=== PATIENT | male | born 1950 | race Caucasian/White ===

== ENCOUNTER 2019-12-04 18:54 | Emergency (ER) | payer MEDICARE, MEDICAID, SELFPAY ==
--- NOTE | ~2019-12-04 | XR_ITS ---
EXAMINATION: XR chest 2V DATE: 12/04/2019 20:22 INDICATION: COPD. Weakness and shortness of breath. TECHNIQUE: PA and lateral views of the chest were obtained. COMPARISON: None FINDINGS: Lenticular opacity at the posterior and lateral aspects of the right mid and lower lung zones consist ent with small to moderate sized loculated pleural effusion. Right apical scarring with a couple surg ical clips. Lungs are otherwise clear with no pulmonary edema, pneumothorax or left-sided pleural eff usion. The cardiomediastinal silhouette is normal. Moderate thoracic spondylosis with mild anterior w edging of a couple mid thoracic vertebral bodies. IMPRESSION: 1. Unilateral small to moderate-sized loculated right pleural effusion. 2. Scarring and a couple surgical clips at the right apex. Correlate with operative history. Reviewed, dictated and finalized at location A. IMPRESSION: 1. Unilateral small to moderate-sized loculated right pleural effusion. 2. Scarring and a couple surgical clips at the right apex. Correlate with opera tive history.
--- NOTE | ~2019-12-04 | CT_ITS ---
EXAMINATION: CT chest w con DATE: 12/04/2019 21:45 INDICATION: right pleural effusion TECHNIQUE: Computed tomography (CT) of the chest was performed with 100 mL Omnipaque-350 intravenous contrast. Additional 3D reconstructions utilizing coronal maximum intensity projection (MIP) were per formed. Automated exposure control and iterative reconstruction technique were employed. The dose-tom gth product was 177.18 mGy-cm. COMPARISON: None FINDINGS: Loculated moderate-sized right pleural effusion with thickened pleural margins along with scattered s mall calcified plaques along the parietal pleura consistent with chronic exudative effusion. There is round atelectasis in the right lower lobe with volume loss and architectural distortion. No pneumoni a, pulmonary edema, pneumothorax or left-sided pleural effusion. Heart size is normal. Trace pericard ial effusion. Atherosclerotic coronary artery calcifications. Thoracic aorta is normal in caliber wit h no dissection. There is a cluster of mildly prominent subcarinal lymph nodes measuring up to 11 mm in maximal short axis diameter which are likely reactive. No other pathologically enlarged thoracic l ymphadenopathy. There are few surgical clips in the right supraclavicular region. Minimal thyroid tis anmol which could be related to chronic atrophy or change of prior thyroidectomy. Tiny high attenuation gallstones layering along the dependent aspect of the visualized portion of the gallbladder which ap pears normal with no evident wall thickening or pericholecystic inflammatory stranding. Visualized up per abdomen is otherwise unremarkable. Mild to moderate scattered degenerative skeletal changes. IMPRESSION: 1. Unilateral moderate-sized likely chronic loculated right pleural effusion with some peripheral irma cified pleural plaques suggesting an exudative etiology. 2. Adjacent peripheral round atelectasis in the right lower lobe. No other acute cardiopulmonary dise ase. 3. Cluster of mildly prominent subcarinal lymph nodes which are likely reactive. Reviewed, dictated and finalized at location A. IMPRESSION: 1. Unilateral moderate-sized likely chronic loculated right pleural effusion wi th some peripheral calcified pleural plaques suggesting an exudative etiology. 2. Adjacent peripheral round atelectasis in the right lower lobe. No other acut e cardiopulmonary disease. 3. Cluster of mildly prominent subcarinal lymph nodes which are likely reactive .
[2019-12-04 19:10] VITALS: BP 119/76; PULSE 95; RESP 19; TEMP 36.6; O2SAT 98
[2019-12-04 19:20] LABS: Basophils Percent Auto 0.4 % (0.2-1.2); Eosinophils Percent Auto 0.2 % (0-4.4); Hematocrit 30.7 % (42.0-52.0); Hemoglobin 10.2 g/dL (14.0-18.0); Immature Granulocyte Absolute 0.13 K/mm3 (0.00-0.031); Immature Granulocyte Percent A 1.2 % (0-0.5); Lymphocytes Absolute Auto 0.54 K/mm3 (0.9-3.2); Mean Corpuscular HGB Conc 33.2 g/dl (32-36); Mean Corpuscular Hemoglobin 28.8 pg (26-34); Mean Corpuscular Volume 86.7 fl (80-100); Mean Platelet Volume 8.9 fl (7.4-10.4); Monocytes Absolute Auto 0.8 K/mm3 (0.1-0.6); Monocytes Percent Auto 7.2 % (2.6-8.5); Neutrophils Absolute Auto 9.4 K/mm3 (1.3-6.7); Platelet Count Result 414 k/mm3 (150-375); Red Blood Count 3.54 M/mm3 (4.6-6.20); Red Cell Distribution Width 14.8 % (11.5-14.5); White Blood Count 10.9 K/mm3 (4.5-10.0)
[2019-12-04 19:37] LABS: Alanine Aminotransferase 12 U/L (4-50); Albumin Level 3.7 g/dL (3.5-5.1); Alkaline Phosphatase 205 U/L (38-126); Anion Gap 11 mmol/L (8-16); Aspartate Amino Transferase 32 U/L (17-59); Blood Urea Nitrogen 5 mg/dL (9-20); Calcium 8.7 mg/dL (8.4-10.2); Carbon Dioxide 25 mmol/L (22-30); Chloride 93 mmol/L (98-107); Estimated CRCL calculation 96 ml/min; Estimated Glomerular Filt Rate > 60; Glucose 99 mg/dL (75-110); Potassium 4.2 mmol/L (3.4-5.0); Sodium 129 mmol/L (137-145)
--- NOTE | 2019-12-04 20:16 | PC.NURSE ---
UNABLE TO DRAW PT, XRAY HAS PT
[2019-12-04 20:22] LABS: Basophils Percent Auto 0.4 % (0.2-1.2); Eosinophils Percent Auto 0.2 % (0-4.4); Hematocrit 30.7 % (42.0-52.0); Hemoglobin 10.2 g/dL (14.0-18.0); Immature Granulocyte Absolute 0.16 K/mm3 (0.00-0.031); Immature Granulocyte Percent A 1.7 % (0-0.5); Lymphocytes Percent Auto 5.2 % (18.3-44.2); Mean Corpuscular HGB Conc 33.2 g/dl (32-36); Mean Corpuscular Hemoglobin 28.8 pg (26-34); Mean Corpuscular Volume 86.7 fl (80-100); Mean Platelet Volume 9.2 fl (7.4-10.4); Monocytes Absolute Auto 0.8 K/mm3 (0.1-0.6); Monocytes Percent Auto 7.9 % (2.6-8.5); Neutrophils Absolute Auto 8.1 K/mm3 (1.3-6.7); Neutrophils Percent Auto 84.6 % (45.5-73.1); Platelet Count Result 410 k/mm3 (150-375); Red Blood Count 3.54 M/mm3 (4.6-6.20); Red Cell Distribution Width 14.8 % (11.5-14.5); White Blood Count 9.6 K/mm3 (4.5-10.0)
--- NOTE | 2019-12-04 20:30 | PC.NURSE ---
Called lab to add on cbcd
[2019-12-04 20:38] LABS: Alanine Aminotransferase 13 U/L (4-50); Albumin Level 3.6 g/dL (3.5-5.1); Alkaline Phosphatase 211 U/L (38-126); Anion Gap 10 mmol/L (8-16); Aspartate Amino Transferase 33 U/L (17-59); Bilirubin,Total 1.2 mg/dL (0.2-1.3); Blood Urea Nitrogen 5 mg/dL (9-20); Calcium 8.6 mg/dL (8.4-10.2); Carbon Dioxide 25 mmol/L (22-30); Chloride 92 mmol/L (98-107); Estimated CRCL calculation 96 ml/min; Estimated Glomerular Filt Rate > 60; Glucose 98 mg/dL (75-110); Potassium 3.6 mmol/L (3.4-5.0); Sodium 127 mmol/L (137-145)
[2019-12-04 20:39] LABS: Lactic Acid 1.5 mmol/L (0.7-2.1)
--- NOTE | 2019-12-04 21:11 | ED.WEAKNESS ---
HPI - Weakness General Chief complaint: Weakness Stated complaint: possible dehydration Time Seen by Provider: 12/04/19 20:49 Source: patient and family Mode of arrival: ambulatory Limitations: no limitations History of Present Illness HPI Narrative: This patient is a 69 year old male with history of COPD, home oxygen, throat CA who presents with family concerned about weakness and pneumonia. His daughter states patient has been lethargic for a 1 month. She reports he is sleeping alot and he gets fatigued easily walking around house. Patient has also had a productive cough. He developed right flank pain 1 week ago. This pain is worse with breathing. He has a poor appetite but he denies nausea, vomiting. He also denies fever. He is using his home oxygen more frequently but he does not know his oxygen saturation He has been cancer free for 6 years. MD Complaint: generalized weakness Related Data Home Medications Medication Instructions Recorded Confirmed Prevagen 1 tab-cap PO DAILY 12/04/19 amlodipine 10 mg PO DAILY 12/04/19 aspirin [Aspir-81] 81 mg PO DAILY 12/04/19 atorvastatin 80 mg PO DAILY 12/04/19 finasteride 5 mg PO DAILY 12/04/19 levothyroxine 100 mcg PO DAILY 12/04/19 lisinopril 20 mg PO DAILY 12/04/19 omeprazole 40 mg PO DAILY 12/04/19 Allergies Allergy/AdvReac Type Severity Reaction Status Date / Time No Known Allergies Allergy Verified 12/04/19 20:45 Review of Systems Review of Systems: All systems reviewed & are unremarkable except as noted in HPI and below Constitutional: Constitutional: Reports chills, Reports fatigue and Denies fever(s) Cardiovascular: Cardiovascular: Reports chest pain and Denies radiating jaw, neck or arm pain Respiratory: Respiratory: Reports cough and Reports dyspnea Gastrointestinal: Gastrointestinal: Denies abdominal pain, Denies nausea and Denies vomiting [facility] Past Medical History Medical History (Updated 12/05/19 @ 01:50 by Terrie Jeronimo MD) COPD (chronic obstructive pulmonary disease) Pneumonia Throat cancer Social History Social History (Updated 12/05/19 @ 01:46 by Terrie Jeronimo MD) Smoking status: Former smoker Gender identity (if verbalized by the patient): Male Exam Const: General: alert and ill appearing chronically Nutritional Appearance: thin Orientation/consciousness: patient oriented x3 Eyes: EOM: EOMs intact bilaterally Resp: Effort & Inspection: normal respiratory effort Auscultation: rhonchi left upper and diminished lung sounds on the right Cardio: Rate: tachycardic Rhythm: regular rhythm Heart sounds: no murmurs GI: GI Palp: Yes Soft to palpation, No Tenderness to palpation present (GI), No Guarding due to palpation present (GI) and No Rigid due to palpation Skin: General skin exam: normal color Rashes: no rashes Neuro: General: patient oriented x3 and moves all extremities Extrem: General: no pedal edema Course Reevaluation(s) Reevaluation #1: Patient has been resting comfortably. He is awaiting transfer to [facility] for evaluation of a loculated pleural effusion. He has his daughter understand need to transfer since we do not have thoracic surgery available he does not want to get further care at OR. Date: 12/05/19 Time: 05:58 Consultations Consultation #1: I spoke with Dr. Andrew Medina, prestidigitator who recommends transferring patient to higher level of care where thoracic surgery is available. He also recommends [facility] Date: 12/04/19 Time: 23:39 Consultation #2: I spoke with epifanio NARAYAN at [facility]. She states they accept patient and they will call back with bed and accepting physician. Date: 12/05/19 Time: 00:30 Vital Signs Vital signs: Vital Signs Temperature 97.8 F 12/04/19 19:10 Pulse Rate 95 12/04/19 19:10 Respiratory Rate 19 12/04/19 19:10 Blood Pressure 119/76 12/04/19 19:10 Pulse Oximetry 98 12/04/19 19:10 Temperature 98.4 F 12/04/19 23:05 Puls
[2019-12-04] MEDS: SODIUM CHLORIDE 0.9% IV 1,000 ML 999 ML IV CONT (21:18)
[2019-12-04 21:32] LABS: Add Urine Microscopic? YES; Appearance Urine Clear (Clear); Bilirubin Urine Negative (Negative); Blood Urine Negative (Negative); Color Urine Yellow (Yellow); Glucose Urine UA Negative (Negative); Ketones Urine Negative (Negative); Leukocyte Esterase Ur Negative LEU/UL (Negative); Nitrate Urine Negative (Negative); Protein Urine Negative (Negative); RBC Urine 0-2 /hpf (0-2); Specific Grav Ur 1.009 (1.001-1.035); WBC Urine 0-3 /hpf
[2019-12-04 22:40] VITALS: BP 130/68; PULSE 110; RESP 18
[2019-12-04 23:05] VITALS: BP 114/86; PULSE 117; RESP 21; TEMP 36.9; O2SAT 100
--- NOTE | 2019-12-04 23:07 | PC.NURSE ---
Assumed care of pt at this time. Report from ELAYNE Chung
[2019-12-05] VITALS (10 sets, daily range): BP systolic 109–135; BP diastolic 65–100; PULSE 83–115; RESP 20–26; TEMP 37.2; O2SAT 99–100
--- NOTE | 2019-12-05 02:03 | PC.NURSE ---
Pt accepted at [facility] bed number [id number]. Report to ELAYNE Randall at [phone]. Pt waiting transport via EMS.
--- NOTE | 2019-12-05 02:06 | PC.NURSE ---
Pt. accepted at [facility]. Pt. room number 3080 Report called to ELAYNE Randall [phone]
--- NOTE | 2019-12-05 02:34 | PC.NURSE ---
[id number] -called [facility] to request transport. ETA [id number]
--- NOTE | 2019-12-05 02:34 | PC.NURSE ---
called [facility] to request transport. [facility] declined.
--- NOTE | 2019-12-05 02:35 | PC.NURSE ---
called [facility] to request transport. declined - no transfer truck until 9am.
--- NOTE | 2019-12-05 02:37 | PC.NURSE ---
called [facility] to request transport. [facility] declined.
--- NOTE | 2019-12-05 03:51 | PC.NURSE ---
called [facility] for ETA update. ETA [phone]
--- NOTE | 2019-12-05 04:28 | PC.NURSE ---
Spoke w/ [facility]. pt to be transferred at 0600.
--- NOTE | 2019-12-05 04:28 | PC.NURSE ---
[facility] called with update ETA to 0600
--- NOTE | 2019-12-05 06:13 | PC.NURSE ---
called [facility] for ETA update. ETA [phone]
--- NOTE | 2019-12-05 06:15 | PC.NURSE ---
[facility] called to update the ETA to [phone]
== END 2019-12-05 08:00 | disposition short-term general hospital (02) ==
PROVIDERS: Emergency Provider General Practice
DX: J90 Pleural effusion, not elsewhere classified (principal); J44.9 Chronic obstructive pulmonary disease, unspecified; Z99.81 Dependence on supplemental oxygen; Z87.891 Personal history of nicotine dependence; Z85.819 Personal history of malignant neoplasm of unspecified site of lip, oral cavity, and pharynx
CPT/HCPCS: 36415; 71046; 71260; 80053; 81001; 83605; 85025; 87040; 96361; 96365; 96367; 99285; J0696; J0743; J3370; J7030; Q9967

== ENCOUNTER 2020-04-16 08:03 | Outpatient (CLI) | payer MEDICARE, MEDICAID, SELFPAY ==
--- NOTE | ~2020-04-16 | US_ITS ---
EXAMINATION: US art doppler w press LEONOR EXAM DATE: 04/16/2020 08:43 INDICATION: Peripheral arterial disease. TECHNIQUE: Segmental pressures and plethysmographic and Doppler waveforms of the brachial and lower e xtremity arteries were obtained. There is no prior study for comparison. FINDINGS: Right and left brachial artery pressures of 142 mm Hg and 157 mm Hg, respectively, are concordant (no rmal difference <= 30 mmHg). RIGHT LEG: The ankle-brachial index (CHANELL) is 1.11 (normal >= 0.9-1). The great toe-brachial index (TBI) is 0.39 (normal >= 0.65). The lower extremity ratios, segmental pressure gradients as follows; Dorsalis pedis: 1.09 (171 mmHg). Posterior tibial: 1.11 (175 mmHg). (Normal gradients <= 20-30 mmHg between adjacent levels on the same leg or the same levels on the two legs). Arterial waveforms are biphasic. LEFT LEG: The ankle-brachial index (CHANELL) is 1.13 (normal >= 0.9-1). The great toe-brachial index (TBI) is 0.67 (normal >= 0.65). The lower extremity ratios, segmental pressure gradients as follows; Dorsalis pedis: 1.08 (170 mmHg). Posterior tibial: 1.13 (178 mmHg). (Normal gradients <= 20-30 mmHg between adjacent levels on the same leg or the same levels on the two legs). Arterial waveforms are biphasic. IMPRESSION: 1. Right ankle-brachial index 1.11, normal. 2. Left ankle-brachial index 1.13, normal. 3. Segmental pressures as above. Reviewed, dictated and finalized at location B. RAME DESIGN ENGINEER
== END 2020-04-16 08:04 | disposition home or self-care (01) ==
LOC: ANHIMG 08:06
PROVIDERS: Visit Provider Internal Medicine Cardiovascular Disease
DX: I73.9 Peripheral vascular disease, unspecified (principal); Z95.820 Peripheral vascular angioplasty status with implants and grafts
CPT/HCPCS: 93923

== ENCOUNTER 2024-01-20 04:08 | Day surgery (SDC) | payer MEDICARE, MEDICAID, SELFPAY ==
[2023-12-29 11:16] VITALS: BMI 16.7
[2024-01-20] VITALS (8 sets, daily range): BP systolic 121–171; BP diastolic 72–93; PULSE 88–120; RESP 18–20; TEMP 36.2; O2SAT 88–100
--- NOTE | 2024-01-20 07:34 | P.PNAN_ITS ---
Anes - Initial Pre Proc Eval Procedure: Operation Date: 01/20/24 09:30 Proposed Procedures p Esophagogastroduodenoscopy & Colonoscopy - Luigi Salazar MD Date/Time: 01/20/24 07:34 Surgeon: Luigi Salazar MD Pre Op Diagnosis: Neoplasm screening Patient Data Age: 73 Gender: M Height: 1.78 m Weight: 53.1 kg Allergies Allergy/AdvReac Type Severity Reaction Status Date / Time No Known Allergies Allergy Verified 01/20/24 08:31 Home Medications Medication Instructions Recorded Confirmed Type aspirin 81 mg tablet,delayed 81 mg PO DAILY 12/04/19 12/29/23 History release (Aspir-) atorvastatin 80 mg tablet 80 mg PO DAILY 12/04/19 12/29/23 History levothyroxine 100 mcg capsule 100 mcg PO DAILY 12/04/19 12/29/23 History lisinopril 20 mg tablet 20 mg PO DAILY 12/04/19 12/29/23 History omeprazole 40 mg capsule,delayed 40 mg PO DAILY 12/04/19 12/29/23 History release tamsulosin 0.4 mg capsule 0.4 mg PO DAILY 12/29/23 12/29/23 History Patient hx anesthesia problems: none Family hx anesthesia problems: none Results Review: All pre-operative results and documents have been reviewed as part of the pre- operative evaluation. [facility] Past Medical History Medical History (Updated 01/20/24 @ 07:36 by Jayce Del Rosario DO) COPD (chronic obstructive pulmonary disease) CVA (cerebral vascular accident) Hyperlipidemia Hypertension Hypothyroidism Pneumonia PVD (peripheral vascular disease) Throat cancer radiation 2016 Surgical History Surgical History (Updated 01/20/24 @ 07:36 by Jayce Del Rosario DO) History of coronary artery stent placement Social History Social History (Updated 12/05/19 @ 01:46 by Terrie Jeronimo MD) Smoking status: Former smoker Tobacco type: cigarettes Alcohol intake: current Drinks per week: 12 Substance use type: does not use Living arrangements: with family Gender identity (if verbalized by the patient): Male Spiritual care concerns: No Anes - Eval Final PreProcedure Day of Procedure 01/20/24 07:34 Patient weight: cachectic Heart: regular rate and rhythm Lungs: clear to auscultation Airway: Mallampati scale class III Neurological: alert and oriented Last oral intake: >/= 8 hours ASA classification: IV Emergent: no Anesthetic plan: proceed Anesthesia type and monitoring: general GIVS and standard monitoring Results Review: All pre-operative results and documents have been reviewed as part of the pre- operative evaluation. Informed Consent: The patient's anesthetic plan and its attendant risks and benefits were discussed with the patient/family/POA. Questions were solicited and answers provided to the satisfaction of the patient/family/POA.
[2024-01-20] MEDS: LACTATED RINGERS 1,000 ML 150 ML IV CONT (09:00)
--- NOTE | 2024-01-20 09:32 | PM.HPGS ---
History of Present Illness History of Present Illness Consent: Risks, benefits, and alternatives have been discussed and questions answered. Patient agrees to proceed with procedure. Chief complaint: Neoplasm screening Narrative: Georges Dangelo is a 73 year old male here for dysphagia, also had polyps in the past, last colonoscopy 5 years ago Review of Systems Review of Systems: All systems reviewed & are unremarkable except as noted in HPI and below PMFSH Past Medical History Medical History (Updated 01/20/24 @ 09:33 by Luigi Salazar MD) Colon polyp COPD (chronic obstructive pulmonary disease) CVA (cerebral vascular accident) Dysphagia Hyperlipidemia Hypertension Hypothyroidism Pneumonia PVD (peripheral vascular disease) Throat cancer radiation 2016 Surgical History Surgical History (Updated 01/20/24 @ 07:36 by Jayce Del Rosario DO) History of coronary artery stent placement Social History Social History (Updated 12/05/19 @ 01:46 by Terrie Jeronimo MD) Smoking status: Former smoker Tobacco type: cigarettes Alcohol intake: current Drinks per week: 12 Substance use type: does not use Living arrangements: with family Gender identity (if verbalized by the patient): Male Spiritual care concerns: No Meds Home Medications and Allergies Home Medications Medication Instructions Recorded Confirmed Type aspirin 81 mg tablet,delayed 81 mg PO DAILY 12/04/19 12/29/23 History release (Aspir-) atorvastatin 80 mg tablet 80 mg PO DAILY 12/04/19 12/29/23 History levothyroxine 100 mcg capsule 100 mcg PO DAILY 12/04/19 12/29/23 History lisinopril 20 mg tablet 20 mg PO DAILY 12/04/19 12/29/23 History omeprazole 40 mg capsule,delayed 40 mg PO DAILY 12/04/19 12/29/23 History release tamsulosin 0.4 mg capsule 0.4 mg PO DAILY 12/29/23 12/29/23 History Allergies Allergy/AdvReac Type Severity Reaction Status Date / Time No Known Allergies Allergy Verified 01/20/24 08:31 Vital Signs Vital Signs - 24 hr 01/20/24 08:25 Temperature 97.1 F L Pulse Rate 105 H Respiratory Rate 18 Blood Pressure 154/72 H Pulse Oximetry 93 Oxygen Delivery Room Air Exam Const: General: alert Nutritional Appearance: thin Orientation/consciousness: patient oriented x3 Eyes: EOM: EOMs intact bilaterally Resp: Effort & Inspection: normal respiratory effort Auscultation: rhonchi left upper and diminished lung sounds on the right Cardio: Rate: tachycardic Rhythm: regular rhythm Heart sounds: no murmurs GI: GI Palp: Yes Soft to palpation, No Tenderness to palpation present (GI), No Guarding due to palpation present (GI) and No Rigid due to palpation Skin: General skin exam: normal color Rashes: no rashes Neuro: General: patient oriented x3 and moves all extremities Extrem: General: no pedal edema Assessment and Plan Assessment and plan (1) Dysphagia: Code(s): R13.10 - Dysphagia, unspecified Status: Acute Assessment and Plan: egd (2) Colon polyp: Code(s): K63.5 - Polyp of colon Status: Acute Assessment and Plan: colonoscopy
--- NOTE | 2024-01-20 11:01 | ECG_ITS ---
Test Date: 2024-01-20 11:05:47 Measurements Intervals [place] Rate: 123 P: 81 CA: 163 QRS: 53 QRSD: 90 T: 63 QT: 318 QTc: 457 Interpretive Statements ARTIFACT IN LEAD(S) SINUS TACHYCARDIA POSSIBLE ANTERIOR MYOCARDIAL INFARCTION [30 ms Q WAVE IN V3/V4, OR R < 0.2 mV IN V4], OF INDETERMINATE AGE No previous ECG available for comparison Electronically Signed On 01-20-2024 11:36:01 CDT by Rishabh Suazo M.D.
--- NOTE | 2024-01-20 11:13 | SUR.PHASEII ---
1045 PT GETTING DRESSED TO GO HOME WHEN DAUGHTER INFORMED PT HAVING TROUBLE BREATHING. O2 2L PER NASAL CANNULA APPLIED. ANESTHESIA NOTIFIED.
--- NOTE | 2024-01-20 11:14 | SUR.PHASEII ---
1110 12-LEAD EKG ORDERED, ANESTHESIA SHOWN RESULTS. ANESTHESIA AT BEDSIDE TO DISCUSS WITH PT AND DAUGHTER.
--- NOTE | 2024-01-20 11:22 | SUR.PHASEII ---
CARDIOLOGY NOTIFIED TO READ EKG. AWAITING RESULTS.
--- NOTE | 2024-01-20 11:48 | SUR.PHASEII ---
CHARGE NURSE SPOKE WITH ANESTHESIA, ANESTHESIA TO SPEAK WITH PT. PT INFORMED.
--- NOTE | 2024-01-20 12:19 | SUR.PHASEII ---
1215 ANESTHESIA AT BEDSIDE, PT OK'D TO DISCHARGE.
== END 2024-01-20 12:20 | disposition home or self-care (01) ==
PROVIDERS: PCP Nurse Practitioner Family; Visit Provider Internal Medicine Gastroenterology
PROC: 0DJ08ZZ Inspection of Upper Intestinal Tract, Via Natural or Artificial Opening Endoscopic (ICD-10-PCS; CPT 43235; principal; 2024-01-20 09:30)
DX: Z12.11 Encounter for screening for malignant neoplasm of colon (principal); K57.30 Diverticulosis of large intestine without perforation or abscess without bleeding; K63.5 Polyp of colon; K64.8 Other hemorrhoids; K44.9 Diaphragmatic hernia without obstruction or gangrene; I10 Essential (primary) hypertension; E78.5 Hyperlipidemia, unspecified; J44.9 Chronic obstructive pulmonary disease, unspecified; E03.9 Hypothyroidism, unspecified; Z86.73 Personal history of transient ischemic attack (TIA), and cerebral infarction without residual deficits; I73.9 Peripheral vascular disease, unspecified; Z85.819 Personal history of malignant neoplasm of unspecified site of lip, oral cavity, and pharynx; Z92.3 Personal history of irradiation; Z95.5 Presence of coronary angioplasty implant and graft; Z87.891 Personal history of nicotine dependence; Z79.82 Long term (current) use of aspirin
CPT/HCPCS: 45385; 43239; 88305; 93005; J2704; J7120

== ENCOUNTER 2024-01-27 09:22 | Outpatient (CLI) | payer MEDICARE, MEDICAID, SELFPAY ==
--- NOTE | ~2024-01-27 | XR_ITS ---
EXAMINATION: XR barium swallow modified DATE: 01/27/2024 10:03 INDICATION: Dysphagia. TECHNIQUE: The patient was given barium-containing material of multiple consistencies to swallow by t he speech pathologist while I performed fluoroscopy. Fluoroscopy exposure time was 0.6 minutes. The n umber of fluoroscopy images saved to the PACS was 1. Dose-area product was 0.391 Gy-cm^2. FINDINGS: There is reduced laryngeal elevation, reduced laryngeal adduction, reduced tongue base retraction, re duced pharyngeal squeeze, vallecular residue, pyriform sinus residue, pharyngeal wall residue, laryng eal penetration, and aspiration. IMPRESSION: 1. Aspiration. 2. Please refer to the speech therapy report for recommendations. Reviewed, dictated and finalized at location A.
--- NOTE | 2024-01-27 11:20 | REHSTMBS ---
Assessment and note entered by Haritha Alaniz CLINICAL FIELD SPECIALIST Modified Barium Swallow Evaluation Feeding Type Recommended Combined Oral/Non-Oral Food Consistency Pureed, Level 4 Liquid Consistency Thin (0) Treatment Recommendations Effortful Swallow,Laryngeal Elevation Exerc, Maximino Maneuver,Tongue Base Exercise,Vocal Fold Adduction Exer ST Clinical Summary MODIFIED BARIUM SWALLOW STUDY Patient was seen for a Modified Barium Swallow study at the request of his physician. He reports a history of throat cancer that contributed to swallowing issues at that time. He states that he has had increase difficulty swallowing in the past five to six months and that he has had pneumonia several times. Patient reported conflicting messages about having to Pureed or Mince all of his meat and solid foods, but also stated all he eats is broth or soup. Patient did not bring dentition to this evaluation so solids were not attempted. Patient was viewed in the lateral position to the level of C5/C6. Patient was presented first with pudding mixed with semi-solid contrast medium. He was able to move this bolus posteriorly and trigger a swallow which placed the bolus in the back of the pharynx between the valleculae, epiglottis, and back wall of throat where it remained, clearing a small amount each time with three subsequent swallows. No penetration or aspiration was noted although material hung above the level of the airway. Patient then was presented with 1/2 teaspoon of thin liquid contrast medium, then 1/2 teaspoon of mildly thick liquid contrast medium, and then the same amount using head flexion. Patient exhibited significant penetration on each of these consistencies, inconsistently triggering a cough which cleared some of the penetrated material however aspiration was noted, not cleared with any coughing and testing was terminated. Impairments observed: Oral Stage: None, just lack of dentition to assist with mastication. Pharyngeal Stage: Reduced base of tongue retraction; Reduced laryngeal elevation; Reduced base of tongue retraction; Head flexion not effective; Laryngeal Penetration with aspiration; Cough reflex helpful but did not clear all penetrated/aspirated material. Results would suggest patient should not be a good candidate for continued oral feedings however patient is refusing to consider non-oral feedings at this time. Thickening the liquid did not seem to facilitate improved swallowing. As patient has already determined what he can and cannot eat, no further diet instructions were offered however it was requested patient return to outpatient Speech Therapy at [facility] and continue appropriate exercises to see if he can increase the strength of the swallowing muscles and better protect his airway. Daughter was present after test, and notified of results and recommendations. Thank you for this referral.
== END 2024-01-27 09:23 | disposition home or self-care (01) ==
PROVIDERS: PCP Nurse Practitioner Family; Visit Provider Nurse Practitioner Family
DX: R13.10 Dysphagia, unspecified (principal)
CPT/HCPCS: 92611

== ENCOUNTER 2024-02-24 10:09 | Outpatient (CLI) | payer MEDICARE, MEDICAID, SELFPAY ==
--- NOTE | ~2024-02-24 | CT_ITS ---
CT head without contrast Indication: Slurred speech Technique: Serial scans were obtained through the brain without the administration of contrast. Dose reduction technique was used on this scan by utilizing automated exposure control and iterative recon struction technique. The dose-length product (DLP) was 605.33 mGy-cm. Findings: There is no evidence of intracranial hemorrhage, mass lesion, or acute infarct. The ventri cles and subarachnoid spaces are dilated, consistent with mild atrophy. Low attenuation regions are seen within the periventricular white matter bilaterally, likely representing changes from chronic mi crovascular ischemic disease. There is no evidence of edema, mass effect or midline shift. The visu alized paranasal sinuses and mastoid air cells are clear. Impression: No intracranial hemorrhage, mass, or acute infarct. Atrophy and chronic white matter changes, as above. Reviewed, dictated and finalized at location . HALMIC ASST Impression: No intracranial hemorrhage, mass, or acute infarct. Atrophy and chronic white matter changes, as above.
== END 2024-02-24 10:10 | disposition home or self-care (01) ==
LOC: ANHIMG 10:14
PROVIDERS: PCP Nurse Practitioner Family; Visit Provider Nurse Practitioner Family
DX: R47.81 Slurred speech (principal); R90.82 White matter disease, unspecified
CPT/HCPCS: 70450

== ENCOUNTER 2024-03-21 08:35 | Observation (INO) | payer MEDICARE, MEDICAID, SELFPAY ==
[2024-03-13 16:53] VITALS: BMI 17.0
[2024-03-21] VITALS (7 sets, daily range): BP systolic 99–111; BP diastolic 52–64; PULSE 91–116; RESP 12–24; TEMP 35.9–36.8; O2SAT 96–100; BMI 16.5
[2024-03-21] MEDS: LACTATED RINGERS 1,000 ML 150 ML IV CONT (08:14)
[2024-03-21] MEDS: ceFAZolin 1 GM/NS 50 ML 1 GM/50 ML BAG IVPB (08:20)
--- NOTE | 2024-03-21 08:33 | WPDANESEPPF ---
Anes - Initial Pre Proc Eval Procedure: Operation Date: 03/21/24 09:00 Proposed Procedures p Percutaneous Endoscopic Gastrostomy - Luigi Salazar MD Date/Time: 03/21/24 08:33 Surgeon: Luigi Salazar MD Pre Op Diagnosis: abnormal weight loss,dysphagia Patient Data Age: 73 Gender: M Height: 1.78 m Weight: 52.3 kg Last Vital Signs Temp 35.9 C L 03/21/24 07:56 Pulse 116 H 03/21/24 07:56 Resp 18 03/21/24 07:56 BP 101/64 03/21/24 07:56 Pulse Ox 99 03/21/24 07:56 O2 Del Method Room Air 03/21/24 07:56 Allergies Allergy/AdvReac Type Severity Reaction Status Date / Time No Known Allergies Allergy Verified 03/21/24 07:55 Home Medications Medication Instructions Recorded Confirmed Type aspirin 81 mg tablet,delayed 81 mg PO DAILY 12/04/19 03/21/24 History release (Aspir-) atorvastatin 80 mg tablet 80 mg PO DAILY 12/04/19 03/21/24 History levothyroxine 100 mcg capsule 100 mcg PO DAILY 12/04/19 03/21/24 History lisinopril 20 mg tablet 20 mg PO DAILY 12/04/19 03/21/24 History omeprazole 40 mg capsule,delayed 40 mg PO DAILY 12/04/19 03/21/24 History release tamsulosin 0.4 mg capsule 0.4 mg PO DAILY 12/29/23 03/21/24 History Laboratory Tests 03/21/24 08:13 Sodium Pending Potassium Pending Chloride Pending Carbon Dioxide Pending Anion Gap Pending BUN Pending Creatinine Pending Estim Creat Clear Calc Pending Estimated GFR Pending Glucose Pending Calcium Pending Patient hx anesthesia problems: none Family hx anesthesia problems: none Results Review: All pre-operative results and documents have been reviewed as part of the pre-operative evaluation. [facility] Past Medical History Medical History Colon polyp COPD (chronic obstructive pulmonary disease) CVA (cerebral vascular accident) Dysphagia Hyperlipidemia Hypertension Hypothyroidism Pneumonia PVD (peripheral vascular disease) Throat cancer radiation 2016 Surgical History Surgical History History of coronary artery stent placement Social History Social History Smoking status: Former smoker Tobacco type: cigarettes Alcohol intake: current Alcohol use details: Social Substance use type: does not use Living arrangements: with family Gender identity (if verbalized by the patient): Male Spiritual care concerns: No Anes - Eval Final PreProcedure Day of Procedure 03/21/24 08:33 Patient weight: thin Heart: regular rate and rhythm Lungs: decreased breath sounds Airway: Mallampati scale class II Neurological: alert and oriented Last oral intake: >/= 8 hours ASA classification: IV Emergent: no Anesthetic plan: proceed Anesthesia type and monitoring: general GIVS and standard monitoring Results Review: All pre-operative results and documents have been reviewed as part of the pre-operative evaluation. Informed Consent: The patient's anesthetic plan and its attendant risks and benefits were discussed with the patient/family/POA. Questions were solicited and answers provided to the satisfaction of the patient/family/POA.
[2024-03-21 08:35] LABS: Anion Gap 4 mmol/L (4-12); Calcium 7.9 mg/dL (8.4-10.2); Carbon Dioxide 31 mmol/L (22-30); Chloride 94 mmol/L (98-107); Estimated CRCL calculation 82 ml/min; Estimated Glomerular Filt Rate > 60; Glucose 74 mg/dL (65-110); Potassium 2.9 mmol/L (3.4-5.0); Sodium 129 mmol/L (137-145)
--- NOTE | 2024-03-21 08:49 | WPDGICN ---
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 for formula recommendation tube feeding anticipated for more than 90 days (2) Weight loss: Code(s): R63.4 - Abnormal weight loss Status: Acute Assessment and Plan: he also will follow with oncologist soon (3) Malnutrition: Qualifiers: Malnutrition type: protein-calorie malnutrition Protein-calorie malnutrition severity: severe Qualified Code(s): E43 - Unspecified severe protein-calorie malnutrition Code(s): E46 - Unspecified protein-calorie malnutrition Status: Acute Assessment and Plan: monitor electrolytes start enteral nutrition using peg tube (4) Early satiety: Code(s): R68.81 - Early satiety Status: Acute (5) Aspiration into airway: Qualifiers: Encounter type: subsequent encounter Qualified Code(s): T17.908D - Unspecified foreign body in respiratory tract, part unspecified causing other injury, subsequent encounter Code(s): T17.908A - Unspecified foreign body in respiratory tract, part unspecified causing other injury, initial encounter Status: Acute Assessment and Plan: he has to be npo status (6) 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, unspecified Status: Acute GI Consult Note Consult date/time: 03/21/24 08:49 Reason for consult: dysphagia, aspiration HPI: Georges Dangelo is a 73 year old male with past medical surgical history of COPD, BPH, hyperthyroidism, HTN, PVD, history of aspiration, personal history of colon polyps, GERD, and Juarez's esophagus. He had colonoscopy and EGD on 01/20/2024 which showed a 2 cm hiatal hernia but was otherwise unremarkable. 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 Since his surgery he has been experiencing chronic dysphagia and aspiration but states that it was mostly difficulty swallowing liquids but since the end of July he has been having difficulty swallowing solids, liquids, and pills. He had a swallow study performed last month which showed aspiration. He is planning to see neurologist and oncologist soon. He has been losing weight about 50 lb this year because difficulty eating, finally he is coming here for PEG placement and will be admitted overnight. Family at bedside. Review of Systems Constitutional: Constitutional: Reports fatigue and Reports weight loss Eyes: Eyes: Denies blurry vision ENT: Reports Normal hearing present Cardiovascular: Cardiovascular: Denies chest pain Respiratory: Respiratory: Denies cough Gastrointestinal: Gastrointestinal: Denies abdominal pain Genitourinary: Genitourinary: Denies hematuria Musculoskeletal: Musculoskeletal: Denies neck pain Integumentary/Breasts: Skin/Breast: Denies rash Neurologic: Denies confusion Psychiatric: Psychiatric: Denies behavioral changes [facility] Past Medical History Medical History (Updated 03/21/24 @ 08:53 by Luigi Salazar MD) Colon polyp COPD (chronic obstructive pulmonary disease) CVA (cerebral vascular accident) Dysphagia Hyperlipidemia Hypertension Hypothyroidism Pneumonia PVD (peripheral vascular disease) Throat cancer radiation 2016 Surgical History Surgical History History of coronary artery stent placement Social History Social History Smoking status: Former smoker Tobacco type: cigarettes Alcohol intake: current Alcohol use details: Social Substance use type: does not use Living arrangements: with family Gender identity (if verbalized by the patient): Male Spiritual care concerns: No Meds Home Medications and Allergies Home Medications Medication Instructions Recorded Confirmed Type aspirin 81 mg tablet,delayed 81 mg PO DAILY 12/04/19 03/21/24 History release (Aspir-) atorvastatin 80 mg tablet 80 mg PO DAILY 12/04/19 03/21/24 History levothyroxine 100 mcg capsule 100 mcg PO DAILY 12/04/19 03/21/24 History lisinopril 20 mg tablet 20 mg PO DAILY 12/04/19 03/21/24 History omeprazole 40 mg capsule,delayed 40 mg PO DAILY 12/04/19 03/21/24 History release tamsulosin 0.4 mg capsule 0.4 mg PO DAILY 12/29/23 03/21/24 History Allergies Allergy/AdvReac Type Severity Reaction Status Date / Time No Known Allergies Allergy Verified 03/21/24 07:55 Vital Signs Vital Signs - 24 hr 03/21/24 07:56 Temperature 96.7 F L Pulse Rate 116 H Respiratory Rate 18 Blood Pressure 101/64 Pulse Oximetry 99 Oxygen Delivery Room Air Exam Const: General: alert Nutritional Appearance: thin Orientation/consciousness: patient oriented x3 HENMT: Face/Nose/Sinus: Normal nares present Eyes: EOM: EOMs intact bilaterally Neck: Neck: no JVD Resp: Effort & Inspection: normal respiratory effort Auscultation: diminished lung sounds on the right Cardio: Rhythm: regular rhythm Heart sounds: no murmurs GI: GI Palp: Yes Soft to palpation, No Tenderness to palpation present (GI), No Guarding due to palpation present (GI) and No Rigid due to palpation Skin: General skin exam: normal color Rashes: no rashes Neuro: General: patient oriented x3 and moves all extremities Extrem: General: no pedal edema Psych: Thought content: No Hallucination(s) present Results Labs 03/21/24 08:13 Labs: BMP 03/21/24 08:13 Sodium 129 L Potassium 2.9 L Chloride 94 L Carbon Dioxide 31 H Creatinine 0.50 L Glucose 74 Calcium 7.9 L
--- NOTE | 2024-03-21 09:30 | PC.NURSE ---
This patient, Georges Dangelo, was received from [ ] on 03/21/24. Patient/family oriented to unit policies and routines. Report from [facility]. Direct admit
[2024-03-21 09:36] LABS: Blood Urea Nitrogen < 2 mg/dL (9-20)
--- NOTE | 2024-03-21 10:34 | ADMGEN ---
This patient, Georges Dangelo, was admitted to [facility] Surg Room 330-02. Patient/family oriented to hospital policies and general routines including ID bracelet, bed and alarms, visiting hours, pain management, procedures, bathroom and other care routines, personal items, smoking policy, room service/diet, and visiting hours. Information on how to activate the Rapid Response Team has been discussed. Patient/Family are encouraged to report perceived risks to care and to ask questions if they do not understand what they are told or what they should do. Report from [facility] in GI lab
[2024-03-21 11:04] LABS: Hematocrit 30.1 % (42.0-52.0); Hemoglobin 10.4 g/dL (14.0-18.0); Mean Corpuscular HGB Conc 34.6 g/dl (32-36); Mean Corpuscular Hemoglobin 33.4 pg (26-34); Mean Corpuscular Volume 96.8 fl (80-100); Mean Platelet Volume 8.9 fl (7.4-10.4); Platelet Count Result 209 k/mm3 (150-375); Red Blood Count 3.11 M/mm3 (4.6-6.20); Red Cell Distribution Width 13.8 % (11.5-14.5); White Blood Count 4.5 K/mm3 (4.5-10.0)
[2024-03-21] MEDS: SODIUM CHLORIDE 0.9% IV 1,000 ML 100 ML IV CONT (11:15)
[2024-03-21] MEDS: IBUPROFEN IV 400 MG in SODIUM CHLORIDE 0.9% IV 100 ML 200 MG IVPB (11:16)
[2024-03-21 11:17] LABS: Magnesium 1.6 mg/dL (1.6-2.3)
[2024-03-21] MEDS: POTASSIUM CHLORIDE INJ 40 MEQ in SODIUM CHLORIDE 0.9% IV 500 ML 130 MEQ IVPB (11:50)
--- NOTE | 2024-03-21 12:23 | PCDIET ---
Addendum entered by Allyn Jimenez, RD, LDN 03/22/24 09:17: Pt tolerated continuous feeds. Recommend to trial half a bolus feed and increase as tolerated. New recommendations for bolus feeds of 250ml QID with 200ml flush each feed. Original Note: TUBE FEEDING: Recommend to initiate tube feedings continuous overnight using TwoCal HN formula. Start tube feed at 20ml/hr and advance by 10ml q 4 hrs to goal rate of 50ml/hr. Monitor tolerance and follow up in AM *Bolus recommendation to meet needs: 200ml 2cal HN 5x/day to provide 2000kcals, 83g protein, 700ml free water. Pt will need an additional 200ml flush with each feed to provide 1700ml free water total over 24 hrs.
[2024-03-21] MEDS: LIDOCAINE HCL 2% VISC SOLN 15 ML UDC PO (13:56)
[2024-03-21] MEDS: ASPIRIN 81 MG ENTERIC TABLET PO (13:57)
[2024-03-21] MEDS: PANTOPRAZOLE 40 MG TABLET PO ×2 (13:58→21:23)
[2024-03-21] MEDS: TAMSULOSIN HCL 0.4 MG CAPSULE PO (13:58)
[2024-03-21] MEDS: ATORVASTATIN 40 MG TABLET 80 MG PO (13:58)
--- NOTE | 2024-03-21 15:13 | PM.IMHP ---
H&P: HPI History of Present Illness Date/Time: 03/21/24 15:13 Chief Complaint: dysphagia Narrative: Georges Dangelo is a 73 year old male with past medical surgical history of COPD, BPH, hyperthyroidism, HTN, PVD, history of aspiration, personal history of colon polyps, GERD, and Juarez's esophagus admitted for peg tube placement. He had colonoscopy and EGD on 01/20/2024 which showed a 2 cm hiatal hernia. 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 Since he has been experiencing chronic dysphagia and aspiration but states that it was mostly difficulty swallowing liquids but since the end of July he has been having difficulty swallowing solids, liquids, and pills. He has been losing weight about 50 lb this year because difficulty eating GI was consulted- plan to proceed with peg placement, he has confirm aspiration and significant weight loss email engineer consulted for formula recommendation pt is weak. but denies any chest pain, n/v/d. reports some headache. Review of Systems Review of Systems: All systems reviewed & are unremarkable except as noted in HPI and below (h/p) [facility] Past Medical History Medical History (Updated 03/21/24 @ 08:53 by Luiig Salazar MD) Colon polyp COPD (chronic obstructive pulmonary disease) CVA (cerebral vascular accident) Dysphagia Hyperlipidemia Hypertension Hypothyroidism Pneumonia PVD (peripheral vascular disease) Throat cancer radiation 2016 Surgical History Surgical History History of coronary artery stent placement Social History Social History Smoking packs per day: 1 Smoking cigarettes per day: 20.0 Smoking status: Former smoker Tobacco type: cigarettes Alcohol intake: current Drinks per week: 18 Alcohol use details: Social Substance use: current Substance use type: does not use Do You Feel Safe in your Home?: No Lack of Transportation: No Lack of Food: Never True Current Housing: I Have Housing Concerned About Future Housing: No Difficulty Paying Gas/Electric Bills: No Difficulty Paying for Meds: No Currently Unemployed: No Education: High School Diploma/GED Difficulty w/ Childcare or Family Care: No Living arrangements: with family Gender identity (if verbalized by the patient): Male Spiritual care concerns: No Meds Home Medications and Allergies Home Medications Medication Instructions Recorded Confirmed Type aspirin 81 mg tablet,delayed 81 mg PO DAILY 12/04/19 03/21/24 History release (Aspir-) atorvastatin 80 mg tablet 80 mg PO DAILY 12/04/19 03/21/24 History levothyroxine 100 mcg capsule 100 mcg PO DAILY 12/04/19 03/21/24 History lisinopril 20 mg tablet 20 mg PO DAILY 12/04/19 03/21/24 History omeprazole 40 mg capsule,delayed 40 mg PO DAILY 12/04/19 03/21/24 History release tamsulosin 0.4 mg capsule 0.4 mg PO DAILY 12/29/23 03/21/24 History lidocaine HCl 2 % mucosal solution 15 ml PO Q3H PRN tongue pain 03/21/24 03/21/24 History Allergies Allergy/AdvReac Type Severity Reaction Status Date / Time No Known Allergies Allergy Verified 03/21/24 07:55 Vital Signs Vital Signs - 24 hr 03/21/24 07:56 03/21/24 09:07 03/21/24 09:17 Temperature 96.7 F L Pulse Rate 116 H 105 H 102 H Respiratory Rate 18 16 24 H Blood Pressure 101/64 101/64 111/60 Pulse Oximetry 99 100 97 Oxygen Delivery Room Air Room Air Room Air 03/21/24 09:27 Temperature Pulse Rate 91 Respiratory Rate 15 Blood Pressure 101/60 Pulse Oximetry 100 Oxygen Delivery Room Air Exam Const: General: comfortable Eyes: General: appearance normal, both eyes and all related structures Resp: Effort & Inspection: normal respiratory effort Auscultation: clear to auscultation bilaterally Cardio: Rate: regular rate Rhythm: regular rhythm GI: GI Palp: Yes Tenderness to palpation present (GI) Other: peg tube in place-dressing c/d/i Skin: Other: pale Extrem: General: normal to inspection Psych: Affect: normal affect H&P: Results Labs Labs: Short CBC 03/21/24 Range/Units 10:54 WBC 4.5 (4.5-10.0) K/mm3 Hgb 10.4 L (14.0-18.0) g/dL Hct 30.1 L (42.0-52.0) % Plt Count 209 (150-375) k/mm3 [facility] 03/21/24 08:13 Sodium 129 L Potassium 2.9 L Chloride 94 L Carbon Dioxide 31 H BUN < 2 L Creatinine 0.50 L Glucose 74 Calcium 7.9 L Assessment and Plan Assessment and plan (1) 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, unspecified Status: Acute (2) Malnutrition: Qualifiers: Malnutrition type: protein-calorie malnutrition Protein-calorie malnutrition severity: severe Qualified Code(s): E43 - Unspecified severe protein-calorie malnutrition Code(s): E46 - Unspecified protein-calorie malnutrition Status: Acute (3) Dysphagia: Qualifiers: Dysphagia type: esophageal phase Qualified Code(s): R13.19 - Other dysphagia Code(s): R13.10 - Dysphagia, unspecified Status: Acute Plan peg tube placement dietitian consult- appreciate tube feeding recommendations will need to set up home feedings #hypothyroidism - unable to take home meds for a wjile -willr epeat tsh # htn will hold lisinopril as BP stable Quality VTE Prophylaxis VTE prophylaxis: mechanical ordered Hospitalist MIPS Advance Care Plan I have confirmed that the patient's Advanced Care Plan is present, code status is documented, or surrogate decision maker is listed in patient medical record.: Yes Medication Reconciliation I have utilized all available resources to obtain, update and review the patients current medications (includes all prescriptions, OTC, herbals, cannabis, and nutritional supplements).: Yes
[2024-03-21 18:38] LABS: Glucose Point of Care 121 mg/dl (65-105)
[2024-03-22 01:15] LABS: Glucose Point of Care 156 mg/dl (65-105)
[2024-03-22] MEDS: SODIUM CHLORIDE 0.9% IV 1,000 ML 100 ML IV CONT (02:49)
[2024-03-22 05:40] LABS: Glucose Point of Care 142 mg/dl (65-105)
[2024-03-22 05:52] VITALS: BP 129/58; PULSE 90; RESP 12; TEMP 37.3; O2SAT 98
[2024-03-22] MEDS: LEVOTHYROXINE SODIUM 100 MCG TABLET PO (06:31)
[2024-03-22 07:11] LABS: Hematocrit 28.7 % (42.0-52.0); Hemoglobin 9.6 g/dL (14.0-18.0); Mean Corpuscular HGB Conc 33.4 g/dl (32-36); Mean Corpuscular Hemoglobin 33.2 pg (26-34); Mean Corpuscular Volume 99.3 fl (80-100); Mean Platelet Volume 9.1 fl (7.4-10.4); Platelet Count Result 192 k/mm3 (150-375); Red Blood Count 2.89 M/mm3 (4.6-6.20); Red Cell Distribution Width 13.8 % (11.5-14.5); White Blood Count 9.8 K/mm3 (4.5-10.0)
[2024-03-22 07:19] LABS: Anion Gap 1 mmol/L (4-12); Blood Urea Nitrogen 4 mg/dL (9-20); Calcium 7.4 mg/dL (8.4-10.2); Carbon Dioxide 28 mmol/L (22-30); Chloride 103 mmol/L (98-107); Estimated CRCL calculation 82 ml/min; Estimated Glomerular Filt Rate > 60; Glucose 130 mg/dL (65-110); Potassium 3.7 mmol/L (3.4-5.0); Sodium 132 mmol/L (137-145)
[2024-03-22] MEDS: ATORVASTATIN 40 MG TABLET 80 MG PO (10:07)
[2024-03-22] MEDS: TAMSULOSIN HCL 0.4 MG CAPSULE PO (10:08)
--- NOTE | 2024-03-22 10:20 | P.PNIM_ITS ---
Progress Note: A&P Assessment and Plan (1) 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, unspecified Status: Acute (2) Malnutrition: Qualifiers: Malnutrition type: protein-calorie malnutrition Protein-calorie malnutrition severity: severe Qualified Code(s): E43 - Unspecified severe protein-calorie malnutrition Code(s): E46 - Unspecified protein-calorie malnutrition Status: Acute (3) Dysphagia: Qualifiers: Dysphagia type: esophageal phase Qualified Code(s): R13.19 - Other dysphagia Code(s): R13.10 - Dysphagia, unspecified Status: Acute Plan peg tube placement dietitian consult- appreciate tube feeding recommendations appreciate care coordination help to set up home feedings #hypothyroidism - unable to take home meds for a while -TSH repeated- high-will adjust levothyroxine-112 mcg-will need to repeat TSH in 6-8 weeks as an oupt. # htn will hold lisinopril as BP stable Time Spent With Patient Time with patient: Greater than 35 minutes Subjective Date/time seen: 03/22/24 10:20 Interval history: dysphagia Narrative: Georges Dangelo is a 73 year old male with past medical surgical history of COPD, BPH, hyperthyroidism, HTN, PVD, history of aspiration, personal history of colon polyps, GERD, and Juarez's esophagus admitted for peg tube placement. He had colonoscopy and EGD on 01/20/2024 which showed a 2 cm hiatal hernia. 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 Since he has been experiencing chronic dysphagia and aspiration but states that it was mostly difficulty swallowing liquids but since the end of July he has been having difficulty swallowing solids, liquids, and pills. 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 but denies any chest pain, n/v/d. reports some headache. 03/22- Tube feedings are initiated today. OK to discharge per gi. working with care coordination to get tube feedings set up and complete pt and family education. Review of Systems Review of Systems: All systems reviewed & are unremarkable except as noted in HPI and below (h/p) Exam Const: General: comfortable Eyes: General: appearance normal, both eyes and all related structures Resp: Effort & Inspection: normal respiratory effort Auscultation: clear to auscultation bilaterally Cardio: Rate: regular rate Rhythm: regular rhythm GI: Other: peg tube in place-dressing c/d/i Skin: Other: pale Extrem: General: normal to inspection Psych: Affect: normal affect Objective Data Vital Signs Vital Signs: Vital Signs - 24 hr 03/21/24 14:00 03/21/24 21:28 03/21/24 20:00 Temperature 97.6 F 98.3 F Pulse Rate 101 H 101 H 101 H Respiratory Rate 16 12 12 Blood Pressure 109/52 L 99/60 L Pulse Oximetry 97 96 96 Oxygen Delivery Room Air 03/22/24 05:52 Temperature 99.1 F Pulse Rate 90 Respiratory Rate 12 Blood Pressure 129/58 L Pulse Oximetry 98 Oxygen Delivery Intake/Output Intake/Output: Intake & Output 03/19/24 03/20/24 03/21/24 03/22/24 23:59 23:59 23:59 23:59 Intake Total 2724 Output Total 800 Balance 1924 Meds/Results Medications: Active Medications Generic Name Dose Route Start Last Admin Trade Name Freq PRN Reason Stop Dose Admin Aspirin 81 mg 03/21/24 13:50 03/22/24 10:08 Aspirin 81 Mg Enteric Tablet PO 81 mg DAILY BECCA Administration Atorvastatin Calcium 80 mg 03/21/24 13:50 03/22/24 10:07 Atorvastatin 40 Mg Tablet PO 80 mg DAILY BECCA Administration Sodium Chloride 1,000 mls @ 100 mls/hr 03/21/24 10:45 03/22/24 02:49 Normal Saline Iv IV CONT 100 mls/hr .Q10H BECCA Administration Levothyroxine Sodium 100 mcg 03/22/24 06:30 03/22/24 06:31 Levothyroxine Sodium 100 Mcg Tablet PO 100 mcg DAILY@0630 BECCA Administration Lidocaine HCl 15 ml 03/21/24 13:44 03/21/24 13:56 Lidocaine Hcl 2% Visc Soln 15 Ml Udc PO 15 ml Q3H PRN Administration tongue pain Pantoprazole Sodium 40 mg 03/21/24 13:50 03/22/24 10:08 Pantoprazole 40 Mg Tablet PO 40 mg Q12HR BECCA Administration Tamsulosin HCl 0.4 mg 03/21/24 13:50 03/22/24 10:08 Tamsulosin Hcl 0.4 Mg Capsule PO 0.4 mg DAILY BECCA Administration Labs Labs: Laboratory Results - last 24 hr 03/21/24 03/21/24 03/22/24 10:54 18:31 01:13 WBC 4.5 RBC 3.11 L Hgb 10.4 L Hct 30.1 L MCV 96.8 MCH 33.4 MCHC 34.6 RDW 13.8 Plt Count 209 MPV 8.9 Sodium Potassium Chloride Carbon Dioxide Anion Gap BUN Creatinine Estim Creat Clear Calc Estimated GFR Glucose POC Capillary Glucose 121 H 156 H Calcium Magnesium 1.6 TSH (Reflex) 03/22/24 03/22/24 05:23 06:54 WBC 9.8 RBC 2.89 L Hgb 9.6 L Hct 28.7 L MCV 99.3 MCH 33.2 MCHC 33.4 RDW 13.8 Plt Count 192 MPV 9.1 Sodium 132 L Potassium 3.7 Chloride 103 Carbon Dioxide 28 Anion Gap 1 L BUN 4 L Creatinine 0.50 L Estim Creat Clear Calc 82 Estimated GFR > 60 Glucose 130 H POC Capillary Glucose 142 H Calcium 7.4 L Magnesium TSH (Reflex) 6.050 H Quality VTE Prophylaxis VTE prophylaxis: mechanical ordered
[2024-03-22 12:30] LABS: Glucose Point of Care 115 mg/dl (65-105)
--- NOTE | 2024-03-22 13:01 | PCNFU ---
Nutrition Follow-Up Complete: Severe protein calorie malnutrition related to dysphasia and inability to take in adequate caloric intake as evidenced by a significant weight loss of -23% within the last year, pt report of swallowing issues and reduced intake for greater than 6 months, and NFPE findings for severe subcutaneous fat loss (cheeks, ribs) and severe muscle wasting (caodaism, clavicle, shoulder). Goal:Meet estimated needs Pt is progressing towards goal. Continue with same goal Pt current nutrition is NPO/ tube feeds: TwoCal HN. Nutrition recommendation: continue to advance to goal of bolus feeds 250ml QID with 200ml flush each feed Last recorded weight is 52.3 kg. Bowel Motility: +BM 03/22 Labs Reviewed: Hgb:9.6, HCT:28.7, NA:132, Cr:0.5, Glu:130 Meds Noted: protonix Skin: WNL Additional Notes: Pt tolerated tube feeds via continuous last night. Trialed a half bolus feed this AM and tolerated well without complications. Nursing to administer a full bolus feed this afternoon and monitor tolerance. [facility] Also spoke with daughter on phone to update her. Four bottles of TwoCal HN sent up to room for pt to take on discharge. Goal is 250ml QID with 200ml flushes each feed, plus an additional 2 flushes per day, to provide: 2000kcals, 83g protein, 1900ml free water over 24 hrs. Monitor tube feedings, tolerance, wt, labs. Follow up in every Tuesday and Tuesday.
--- NOTE | 2024-03-22 13:50 | WPDANESPN ---
Anes - Prog Note Post-Op Date/Time: 03/22/24 13:50 Cardiovascular status: normal Respiratory status: normal Airway patency: baseline Mental status: baseline Post-Op hydration status: normal Vital Signs: Last Vital Signs Temp 37.3 C 03/22/24 05:52 Pulse 90 03/22/24 05:52 Resp 12 03/22/24 05:52 BP 129/58 L 03/22/24 05:52 Pulse Ox 98 03/22/24 05:52 O2 Del Method Room Air 03/21/24 20:00 Pain Score (VAS): 0 I/O: Intake & Output 03/21/24 03/22/24 03/22/24 23:59 07:59 15:59 Intake Total 2000 Output Total 800 Balance 1200 Laboratory Tests 03/22/24 06:54 03/22/24 06:54 03/21/24 03/22/24 03/22/24 18:31 01:13 05:23 WBC RBC Hgb Hct MCV MCH MCHC RDW Plt Count MPV Sodium Potassium Chloride Carbon Dioxide Anion Gap BUN Creatinine Estim Creat Clear Calc Estimated GFR Glucose POC Capillary Glucose 121 H 156 H 142 H Calcium TSH (Reflex) Free T4 03/22/24 03/22/24 06:54 11:44 WBC 9.8 RBC 2.89 L Hgb 9.6 L Hct 28.7 L MCV 99.3 MCH 33.2 MCHC 33.4 RDW 13.8 Plt Count 192 MPV 9.1 Sodium 132 L Potassium 3.7 Chloride 103 Carbon Dioxide 28 Anion Gap 1 L BUN 4 L Creatinine 0.50 L Estim Creat Clear Calc 82 Estimated GFR > 60 Glucose 130 H POC Capillary Glucose 115 H Calcium 7.4 L TSH (Reflex) 6.050 H Free T4 Pending Post-procedural complaints: none Patient Feedback: Patient satisfied with anesthetic care.
[2024-03-22 14:00] VITALS: BP 130/69; PULSE 97; RESP 20; TEMP 36.4; O2SAT 100
--- NOTE | 2024-03-22 15:07 | P.PNGI_ITS ---
Progress Note: A&P Assessment and Plan (1) Malnutrition: Qualifiers: Malnutrition type: protein-calorie malnutrition Protein-calorie malnutrition severity: severe Qualified Code(s): E43 - Unspecified severe pro tein-calorie malnutrition Code(s): E46 - Unspecified protein-calorie malnutrition Status: Acute Assessment and Plan: dysphagia with risk for aspiration set up home health for tube feeding by g-tube npo otherwise will follow as needed (2) Early satiety: Code(s): R68.81 - Early satiety Status: Acute (3) Weight loss: Code(s): R63.4 - Abnormal weight loss Status: Acute (4) Dysphagia: Qualifiers: Dysphagia type: esophageal phase Qualified Code(s): R13.19 - Other dysphagia Code(s): R13.10 - Dysphagia, unspecified Status: Acute (5) 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, unspecified Status: Acute Assessment and Plan: he will follow-up with oncologist as outpatient Subjective Date/time seen: 03/22/24 15:07 Interval history: tolerated food bolus by peg tube no new issues Review of Systems Review of Systems: All systems reviewed & are unremarkable except as noted in HPI and below Exam Const: General: alert Nutritional Appearance: thin Orientation/consciousness: patient oriented x3 HENMT: Face/Nose/Sinus: Normal nares present Eyes: EOM: EOMs intact bilaterally Neck: Neck: no JVD Resp: Effort & Inspection: normal respiratory effort Auscultation: diminished lung sounds on the right Cardio: Rhythm: regular rhythm Heart sounds: no murmurs GI: GI Palp: Yes Soft to palpation, No Tenderness to palpation present (GI), No Guarding due to palpation present (GI) and No Rigid due to palpation Other: peg in place Skin: General skin exam: normal color Rashes: no rashes Neuro: General: patient oriented x3 and moves all extremities Extrem: General: no pedal edema Psych: Thought content: No Hallucination(s) present Objective Data Vital Signs Vital Signs: Vital Signs - 24 hr 03/21/24 21:28 03/21/24 20:00 03/22/24 05:52 Temperature 98.3 F 99.1 F Pulse Rate 101 H 101 H 90 Respiratory Rate 12 12 12 Blood Pressure 99/60 L 129/58 L Pulse Oximetry 96 96 98 Oxygen Delivery Room Air Intake/Output Intake/Output: Intake & Output 03/19/24 03/20/24 03/21/24 03/22/24 23:59 23:59 23:59 23:59 Intake Total 2724 Output Total 800 Balance 1924 Meds/Results Medications: Active Medications Generic Name Dose Route Start Last Admin Trade Name Freq PRN Reason Stop Dose Admin Aspirin 81 mg 03/21/24 13:50 03/22/24 10:08 Aspirin 81 Mg Enteric Tablet PO 81 mg DAILY BECCA Administration Atorvastatin Calcium 80 mg 03/21/24 13:50 03/22/24 10:07 Atorvastatin 40 Mg Tablet PO 80 mg DAILY BECCA Administration Sodium Chloride 1,000 mls @ 100 mls/hr 03/21/24 10:45 03/22/24 02:49 Normal Saline Iv IV CONT 100 mls/hr .Q10H BECCA Administration Levothyroxine Sodium 112 mcg 03/23/24 06:30 Levothyroxine Sodium 112 Mcg Tablet PO DAILY@0630 BECCA Lidocaine HCl 15 ml 03/21/24 13:44 03/21/24 13:56 Lidocaine Hcl 2% Visc Soln 15 Ml Udc PO 15 ml Q3H PRN Administration tongue pain Pantoprazole Sodium 40 mg 03/21/24 13:50 03/22/24 10:08 Pantoprazole 40 Mg Tablet PO 40 mg Q12HR BECCA Administration Tamsulosin HCl 0.4 mg 03/21/24 13:50 03/22/24 10:08 Tamsulosin Hcl 0.4 Mg Capsule PO 0.4 mg DAILY BECCA Administration Labs Labs: Laboratory Results - last 24 hr 03/21/24 03/22/24 03/22/24 18:31 01:13 05:23 WBC RBC Hgb Hct MCV MCH MCHC RDW Plt Count MPV Sodium Potassium Chloride Carbon Dioxide Anion Gap BUN Creatinine Estim Creat Clear Calc Estimated GFR Glucose POC Capillary Glucose 121 H 156 H 142 H Calcium TSH (Reflex) 03/22/24 03/22/24 06:54 11:44 WBC 9.8 RBC 2.89 L Hgb 9.6 L Hct 28.7 L MCV 99.3 MCH 33.2 MCHC 33.4 RDW 13.8 Plt Count 192 MPV 9.1 Sodium 132 L Potassium 3.7 Chloride 103 Carbon Dioxide 28 Anion Gap 1 L BUN 4 L Creatinine 0.50 L Estim Creat Clear Calc 82 Estimated GFR > 60 Glucose 130 H POC Capillary Glucose 115 H Calcium 7.4 L TSH (Reflex) 6.050 H
[2024-03-22 18:20] LABS: Glucose Point of Care 142 mg/dl (65-105)
[2024-03-22 20:23] VITALS: BP 125/67; PULSE 80; RESP 16; TEMP 37.2; O2SAT 100
[2024-03-23 04:44] LABS: Glucose Point of Care 107 mg/dl (65-105)
[2024-03-23] MEDS: LEVOTHYROXINE SODIUM 112 MCG TABLET PO (05:37)
[2024-03-23 05:38] VITALS: BP 127/66; PULSE 88; RESP 14; TEMP 36.9; O2SAT 100
[2024-03-23 06:05] LABS: Glucose Point of Care 98 mg/dl (65-105)
[2024-03-23 06:36] LABS: Hematocrit 26.8 % (42.0-52.0); Mean Corpuscular HGB Conc 33.6 g/dl (32-36); Mean Corpuscular Hemoglobin 33.7 pg (26-34); Mean Corpuscular Volume 100.4 fl (80-100); Mean Platelet Volume 9.4 fl (7.4-10.4); Platelet Count Result 178 k/mm3 (150-375); Red Blood Count 2.67 M/mm3 (4.6-6.20); Red Cell Distribution Width 14.2 % (11.5-14.5); White Blood Count 6.9 K/mm3 (4.5-10.0)
[2024-03-23 06:52] LABS: Anion Gap -4 mmol/L (4-12); Blood Urea Nitrogen 5 mg/dL (9-20); Calcium 7.5 mg/dL (8.4-10.2); Carbon Dioxide 31 mmol/L (22-30); Chloride 102 mmol/L (98-107); Estimated CRCL calculation 100 ml/min; Estimated Glomerular Filt Rate > 60; Glucose 95 mg/dL (65-110); Potassium 4.1 mmol/L (3.4-5.0); Sodium 129 mmol/L (137-145)
[2024-03-23] MEDS: PANTOPRAZOLE SODIUM IV 40 MG VIAL IV PUSH (09:29)
[2024-03-23] MEDS: ASPIRIN 81 MG CHEWABLE TABLET PO (09:29)
[2024-03-23] MEDS: ATORVASTATIN 40 MG TABLET 80 MG PO (09:29)
[2024-03-23] MEDS: LIDOCAINE HCL 2% VISC SOLN 15 ML UDC PO (09:29)
[2024-03-23 09:38] LABS: Free T4 Free Thyroxine Reflex 1.64 ng/dL (0.78-2.19)
--- NOTE | 2024-03-23 10:46 | PCNFU ---
Nutrition Follow-Up Complete: Severe protein calorie malnutrition related to dysphasia and inability to take in adequate caloric intake as evidenced by a significant weight loss of -23% within the last year, pt report of swallowing issues and reduced intake for greater than 6 months, and NFPE findings for severe subcutaneous fat loss (cheeks, ribs) and severe muscle wasting (orthodoxy, clavicle, shoulder). Meet estimated needs - Progressing with tube feedings at goal of bolus TwoCal HN - 250 ml QID Goal: Pt current nutrition is Tube feeding: TwoCal HN @ goal rate bolus 250 ml QID for total 2000 kcal, 83 g protein, 700 ml free water. Flushes 200 ml QID. Nutrition recommendation: Decrease flushes to 100 ml QID because of low sodium. Discussed with provider Last recorded weight is 52.3 kg. Bowel Motility: +1 BM 03/23/24 Labs Reviewed: Hgb 9.0, Hct 26.8, Na 129, BUN 5, Cre 0.4 Meds Noted: Protonix Skin: No skin issues Additional Notes: Pt is up to goal on boluses. Sodium dropped so flushes being decreased, Discussed with Vale. Pt wants to go home. Has 3 bottles of Two Kimo available to take home. Monitor tube feedings, tolerance, wt, labs. Follow up in 1 day.
[2024-03-23 12:01] LABS: Glucose Point of Care 123 mg/dl (65-105)
[2024-03-23 12:08] LABS: Total Triiodothyronine (T3) 0.59 NG/ML (0.97-1.69)
[2024-03-23 14:00] VITALS: BP 121/60; PULSE 90; RESP 20; TEMP 36.3; O2SAT 98
--- NOTE | 2024-03-23 14:26 | PM.DS ---
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, unspecified Status: Acute (2) Malnutrition: Qualifiers: Malnutrition type: protein-calorie malnutrition Protein-calorie malnutrition severity: severe Qualified Code(s): E43 - Unspecified severe protein-calorie malnutrition Code(s): E46 - Unspecified protein-calorie malnutrition Status: Acute (3) Dysphagia: Qualifiers: Dysphagia type: esophageal phase Qualified Code(s): R13.19 - Other dysphagia Code(s): R13.10 - Dysphagia, unspecified Status: Acute DS: Summary Hospital Course Hospital Course: dysphagia Narrative: Georges Dangelo is a 73 year old male with past medical surgical history of COPD, BPH, hyperthyroidism, HTN, PVD, history of aspiration, personal history of colon polyps, GERD, and Juarez's esophagus admitted for peg tube placement. He had colonoscopy and EGD on 01/20/2024 which showed a 2 cm hiatal hernia. 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 Since he has been experiencing chronic dysphagia and aspiration but states that it was mostly difficulty swallowing liquids but since the end of July he has been having difficulty swallowing solids, liquids, and pills. He has been losing weight about 50 lb this year because difficulty eating GI was consulted- plan to proceed with peg placement, he has confirm aspiration and significant weight loss physical design engineer consulted for formula recommendation pt is weak. but denies any chest pain, n/v/d. reports some headache. 03/22- Tube feedings are initiated today. OK to discharge per gi. working with care coordination to get tube feedings set up and complete pt and family education. Pt current nutrition is Tube feeding: TwoCal HN @ goal rate bolus 250 ml QID for total 2000 kcal, 83 g protein, 700 ml free water. Flushes 200 ml QID. Nutrition recommendation: Decrease flushes to 100 ml QID because of low sodium. Will give sodium tablet per tube prior to discharge and send few doses home and will need a f/u in 1 week with pcp for labs recheck. #hypothyroidism - unable to take home meds for a while -TSH repeated- high-will adjust levothyroxine-112 mcg-will need to repeat TSH in 6-8 weeks as an oupt. # htn will hold lisinopril as BP stable monitor at home and keep record bring to pcp tati to see if lisinopril needs to be restarted Time Spent with Patient Time attestation: Total time spent providing and/or coordinating discharge services: Exam Const: General: comfortable Eyes: General: appearance normal, both eyes and all related structures Resp: Effort & Inspection: normal respiratory effort Auscultation: clear to auscultation bilaterally Cardio: Rate: regular rate Rhythm: regular rhythm GI: Other: peg tube in place-dressing c/d/i Skin: Other: pale Extrem: General: normal to inspection Psych: Affect: normal affect DS: Data Data Completed and Pending Labs on day of discharge: Labs from last 24 hours 03/23/24 03/23/24 03/23/24 11:53 06:12 05:41 WBC 6.9 RBC 2.67 L Hgb 9.0 L Hct 26.8 L MCV 100.4 H MCH 33.7 MCHC 33.6 RDW 14.2 Plt Count 178 MPV 9.4 Sodium 129 L Potassium 4.1 Chloride 102 Carbon Dioxide 31 H Anion Gap -4 L BUN 5 L Creatinine 0.40 L Estim Creat Clear Calc 100 Estimated GFR > 60 Glucose 95 POC Capillary Glucose 123 H 98 Calcium 7.5 L Free T4 Total T3 03/22/24 03/22/24 03/22/24 23:49 18:16 06:54 WBC RBC Hgb Hct MCV MCH MCHC RDW Plt Count MPV Sodium Potassium Chloride Carbon Dioxide Anion Gap BUN Creatinine Estim Creat Clear Calc Estimated GFR Glucose POC Capillary Glucose 107 H 142 H Calcium Free T4 1.64 Total T3 0.59 L Discharge Plan Discharge Attending physician on discharge: Mannie Taylor Consulting providers: Luigi Salazar Discharging Clinician: Vale Cam Patient Disposition: Home Health Service Activity: may shower Diet: NPO and tube feeding Discharge Instructions: Please continue tube feedings as instructed: TwoCal HN @ goal rate bolus 250 ml 4 times a day with water Flushes 100 ml 4 times a day. Water flushed were slight;y decreased as your sodium dropped. As we discussed, you will have to f/u with PCP for sodium level recheck in 1 week. #hypothyroidism -TSH level was high-will adjust levothyroxine-112 mcg daily and you will need to repeat TSH in 6-8 weeks as an oupt (may 02) # htn will hold lisinopril as BP stable. Please check your BP in am and keep log. Bring the log to your pcp tati so it can be reviewed and decided if lisinopril needs to be restarted. Per Care Coordination, patient to discharge with [facility] ([phone]) and [facility] services ) for group home services. Please fax discharge instructions to [facility] at . Patient Instructions: Antibiotic Form, Pain Management in Older Adults (DC) Stand Alone Forms: General Discharge Information Follow-up/Referrals: Essie,Trish Ortega, [employer] ESTATE LEASING AGENT [Primary Care Provider] - 1 Week (follow up with pcp for sodium recheck) Luigi Salazar MD [Physician] - 2 Weeks Discharge Medications: New levothyroxine [Synthroid] 112 mcg Tablet 112 mcg PO DAILY@0630 Qty: 90 0RF sodium chloride 1,000 mg Tablet,Soluble 1,000 mg feeding tube BID Qty: 4 0RF Continued tamsulosin 0.4 mg capsule 0.4 mg PO DAILY atorvastatin 80 mg Tablet 80 mg PO DAILY omeprazole 40 mg Capsule,Delayed Release(Dr/Ec) 40 mg PO DAILY aspirin [Aspir-81] 81 mg Tablet,Delayed Release (Dr/Ec) 81 mg PO DAILY lidocaine HCl 2 % solution 15 ml PO Q3H PRN (Reason: tongue pain) Held lisinopril 20 mg Tablet 20 mg PO DAILY Hold Instructions: Resume on 04/20/24. hold until instructed otherwise per pcp Discontinued levothyroxine 100 mcg Capsule 100 mcg PO DAILY Date of admission: 03/21/24 08:35 Primary Care Provider: JagdishTrish Admitting Provider: Ariel Sherman Attending physician on admission: Ariel Sherman Condition: Stable Quality VTE Prophylaxis VTE prophylaxis: mechanical ordered Hospitalist MIPS Heart Failure (Exclusion) Patient has history of Heart Transplant or Left Ventricular Assistive Device?: No IF YES, STOP HERE Heart Failure (Qualifier) Patient has current or prior documentation of LVEF less than or equal to 40%, or mod/servere depressed LVSF?: No IF NO, STOP HERE
== END 2024-03-23 17:15 | disposition home health service (06) ==
LOC: ANH3MEDSUR 09:12
PROVIDERS: Internal Medicine Gastroenterology; Nurse Practitioner; Admitting Provider General Practice; PCP Nurse Practitioner Family; Referring Provider Nurse Practitioner Family; Visit Provider Internal Medicine
PROC: 0DH63UZ Insertion of Feeding Device into Stomach, Percutaneous Approach (ICD-10-PCS; CPT 43246; principal; 2024-03-21 09:00)
DX: R13.19 Other dysphagia (principal); E43 Unspecified severe protein-calorie malnutrition; Z68.1 Body mass index [BMI] 19.9 or less, adult; R68.81 Early satiety; Z85.818 Personal history of malignant neoplasm of other sites of lip, oral cavity, and pharynx; I10 Essential (primary) hypertension; J44.9 Chronic obstructive pulmonary disease, unspecified; N40.0 Benign prostatic hyperplasia without lower urinary tract symptoms; I73.9 Peripheral vascular disease, unspecified; K21.9 Gastro-esophageal reflux disease without esophagitis; K44.9 Diaphragmatic hernia without obstruction or gangrene; E03.9 Hypothyroidism, unspecified; E78.5 Hyperlipidemia, unspecified; Z86.73 Personal history of transient ischemic attack (TIA), and cerebral infarction without residual deficits; Z95.5 Presence of coronary angioplasty implant and graft; Z87.891 Personal history of nicotine dependence; Z79.82 Long term (current) use of aspirin; Z92.3 Personal history of irradiation
CPT/HCPCS: 36415; 43246; 80048; 82948; 83735; 84439; 84443; 84480; 85027; A9270; G0378; J0690; J1741; J2470; J2704; J3480; J7030; J7040; J7120